=== PATIENT | male | born 1925 | race Caucasian/White ===

== ENCOUNTER 2016-06-09 14:18 | Emergency (ER) | payer MEDICARE, OTHER ==
[2016-06-09 15:23] VITALS: BP 97/70
--- NOTE | 2016-06-09 16:13 | UC ---
Shoulder Pain HPI - HPI Summary HPI Summary: The patient comes in today for: 1. Shoulder pain subsequent to fall. Onset: 4 hours ago. Palliative/provocative: Movement makes it worse and rest makes it better. Quality: Throbbing. Region: Right shoulder, right elbow, right hip and right hand. He is interested in getting the right hip and shoulder x-ray. HE wants also a right wrist x- ray. Severity: 2/10 at rest, but 5/10 with movement. Time: Constant. Associated symptoms: Event: He states that he fell while he was going over the curb. The daughter states that he has been having more unsteadiness of his gait over the last 2-3 months. Numbness/weakness: Denied He states that he did not hit his head or have LOC. He denies any new neck pain. He was living on his own at home before this fall. * - History of Current Complaint Chief Complaint: UCTrauma Stated Complaint: FELL-HAND,WRIST,SHOULDER,HIP Time Seen by Provider: 06/09/16 15:04 Hx Obtained From: Patient, Family/Jogger Operator - Allergies/Home Medications Allergies/Adverse Reactions: Allergies Allergy/AdvReac Type Severity Reaction Status Date / Time No Known Allergies Allergy Verified 06/09/16 15:09 PMH/Surg Hx/FS Hx/Imm Hx Previously Healthy: No Endocrine History Of: Denies: Diabetes, Thyroid Disease, Hyperthyroidism, Hypothyroidism, Dyslipidemia Cardiovascular History Of: Reports: Atrial Fibrillation Denies: Cardiac Disorders, Hypertension, Pacemaker/ICD, Myocardial Infarction , Congestive Heart Failure, Deep Vein Thrombosis, Bleeding Disorders Respiratory History Of: Denies: COPD, Asthma GI/ History Of: Denies: Gastroesophageal Reflux, Ulcer, Gastrointestinal Bleed, Gall Bladder Disease, Kidney Stones, Diverticulitis, Renal Disease, Urosepsis Neurological History Of: Denies: TIA, CVA, Dementia, Seizures, Migraine Psychological History Of: Denies: Anxiety, Depression, Bipolar Disorder, Schizophrenia, Post Traumatic Stress Disorder Cancer History Of: Denies: Lung Cancer, Colorectal Cancer, Breast Cancer, Prostate Cancer, Cervical Cancer Other History Of: Anticoagulant Therapy - coumadin Negative For: HIV, Hepatitis B, Hepatitis C - Surgical History Surgical History: Yes Surgery Procedure, Year, and Place: cataracts both eyes - Family History Known Family History: Positive: Cardiac Disease, Hypertension - Social History Occupation: Retired Alcohol Use: None Alcohol Amount: 2 GLASSES WINE/DAY Substance Use Type: None Smoking Status (MU): Never Smoked Tobacco Have You Smoked in the Last Year: No - Immunization History Most Recent Tetanus Shot: Pt states up to date Review of Systems Constitutional: Negative Skin: Negative Eyes: Negative ENT: Negative Respiratory: Negative, Cough - He has "a little bit of a cold." Cardiovascular: Negative Gastrointestinal: Negative All Other Systems Reviewed And Are Negative: Yes Physical Exam Triage Information Reviewed: Yes Appearance: Well-Appearing, No Pain Distress, Well-Nourished Vital Signs: Initial Vital Signs Temp 99.1 F 06/09/16 15:11 Pulse 83 06/09/16 15:11 Resp 20 06/09/16 15:11 BP 97/70 06/09/16 15:11 Pulse Ox 97 06/09/16 15:11 Vital Signs Reviewed: Yes Eyes: Positive: Conjunctiva Clear. Negative: Discharge ENT: Positive: Hearing grossly normal. Negative: Pharyngeal erythema, Nasal congestion, Nasal drainage, TM bulging, TM dull, TM red, Tonsillar swelling, Tonsillar exudate Dental: Negative: Gross Decay/Caries @, Dental Fracture @ Neck: Positive: Supple, Nontender, No Lymphadenopathy. Negative: Nuchal Rigidity Respiratory: Positive: Chest non-tender, Lungs clear, No respiratory distress, No accessory muscle use. Negative: Crackles, Wheezing Cardiovascular: Positive: RRR, No Murmur Abdomen Description: Positive: Nontender, No Organomegaly, Soft. Negative: Distended, Guarding Musculoskeletal: Positive: Edema @, Other: - The patient has swelling around the medial half of the right clavicle. There is tenderness. The right thumb has an abrasion. The lateral side of the right hip did not have any ecchymosis , and no obvious limb length discrepancy. He has good movement of the right hip in flexion and extension and some rotation, but there is slight pain with. He has ecchymosis and edema of the right hand. Neurological: Positive: Alert, Muscle Tone Normal Psychological: Positive: Age Appropriate Behavior, Consolable Skin: Negative: rashes, breakdown Diagnostics - Radiology No standard instances Xray Interpretation: Positive (See Comments) - He has no fractures of the right shoulder, clavicle and this hip. But, he has non-displaced fracture of the 3rd and 4th metacarpal. Shoulder Course/Dx - Course Course Of Treatment: After the fracture treatment of the right hand was discussed, an attempt was made to see how mobile the patient was, but he was barely able to stand and bear weight on his feet, but he needed much help. And he was only able to stand briefly for a few seconds before getting weak. He was alert in that he had his eye open looking around, but he was not responding to his daughter calling him and appeared confused. He was laid down and he started acting normally. A call was made with the [facility] regarding this patient and was told he would probably need a social admit and then transfer to sub acute rehab. The daughter was told of this. - Differential Dx/Diagnosis Provider Diagnoses: Fracture (non-displaced) of the right 3rd and 4th metacarpal. Generalized weakness. Contusion right clavicle. Abrasion of the right hand/thumb. Discharge - Discharge Plan Condition: Stable Disposition: TRANS HIGHER LVL OF CARE FAC Additional Instructions: Patient going via ambulance for social admit due to his inability to take care of himself.
[2016-06-09] MEDS ORDERED: HYDROcodone/ACETAMIN 5-325 MG* 1 TAB PO ONE (16:17)
--- NOTE | 2016-06-09 16:58 | RAD ---
HISTORY: Pain after fall COMPARISONS: November 01, 2009 VIEWS: 3, Frontal internal rotation, external rotation, and outlet views of the right shoulder FINDINGS: BONE DENSITY: There is diffuse osteopenia. BONES: There is a chronic appearing fracture of the right sixth rib. JOINTS: There is osteoarthritis of the a.c. and glenohumeral joints ALIGNMENT: There is no dislocation. SOFT TISSUES: Unremarkable. OTHER FINDINGS: None. IMPRESSION: 1. OSTEOPENIA. 2. CHRONIC APPEARING RIGHT SIXTH RIB FRACTURE. 3. OSTEOARTHRITIS. 4. NO ACUTE OSSEOUS INJURY. THE DEGREE OF OSTEOPENIA MAY MAKE A NONDISPLACED FRACTURE RADIOGRAPHICALLY OCCULT. IF SYMPTOMS PERSIST, RECOMMEND REPEAT IMAGING.
--- NOTE | 2016-06-09 17:08 | RAD ---
HISTORY: Pain after fall COMPARISONS: June 09, 2016 VIEWS: 2, frontal and frontal oblique views of the right clavicle FINDINGS: BONE DENSITY: Normal. BONES: There is no displaced fracture. JOINTS: There is osteoarthritis of the a.c. and glenohumeral joints. There is near complete effacement of the acromiohumeral interval ALIGNMENT: There is no dislocation. SOFT TISSUES: Unremarkable. OTHER FINDINGS: None. IMPRESSION: 1. OSTEOARTHRITIS. 2. NEAR COMPLETE EFFACEMENT OF THE ACROMIOHUMERAL INTERVAL SUGGESTIVE OF CHRONIC ROTATOR CUFF INJURY. 3. NO ACUTE OSSEOUS INJURY. IF SYMPTOMS PERSIST, RECOMMEND REPEAT IMAGING .
--- NOTE | 2016-06-09 17:09 | RAD ---
HISTORY: Pain after fall COMPARISONS: None VIEWS: 3, Frontal view of the pelvis with frontal and frog-leg views of the right hip FINDINGS: BONE DENSITY: Normal. BONES: There is no displaced fracture. JOINTS: There is mild to moderate osteoarthritis of the right hip ALIGNMENT: There is no dislocation. SOFT TISSUES: There is soft tissue swelling over the proximal right thigh. There is peripheral arterial calcification OTHER FINDINGS: Degenerative changes are noted of the spine IMPRESSION: 1. SOFT TISSUE SWELLING. 2. OSTEOARTHRITIS. 3. NO ACUTE OSSEOUS INJURY. IF SYMPTOMS PERSIST, RECOMMEND REPEAT IMAGING
--- NOTE | 2016-06-09 17:10 | RAD ---
HISTORY: Right wrist pain after fall COMPARISONS: None VIEWS: 3, Frontal, lateral, and oblique views of the right wrist FINDINGS: BONE DENSITY: There is diffuse osteopenia. BONES: There is a nondisplaced fracture of the fourth metacarpal with questionable nondisplaced fracture of the third metacarpal JOINTS: There is advanced osteoarthritis of the first CMC joint ALIGNMENT: There is no dislocation. SOFT TISSUES: There is peripheral arterial calcification OTHER FINDINGS: None. IMPRESSION: 1. FRACTURE OF THE FOURTH METACARPAL WITH QUESTIONABLE NONDISPLACED FRACTURE OF THE THIRD METACARPAL. 2. OSTEOARTHRITIS. 3. OSTEOPENIA. 4. PERIPHERAL ARTERIAL DISEASE
--- NOTE | 2016-06-09 17:12 | RAD ---
HISTORY: Right hand pain after fall COMPARISONS: None VIEWS: 4, Frontal, lateral, and oblique views of the right hand FINDINGS: BONE DENSITY: There is diffuse osteopenia. BONES: There is a nondisplaced fracture of the diaphysis of the fourth metacarpal. There is a nondisplaced fracture of the diaphysis of the third metacarpal. JOINTS: There is osteoarthrosis of the first CMC joint and of the interphalangeal joints ALIGNMENT: There is no dislocation. SOFT TISSUES: There is peripheral arterial calcification OTHER FINDINGS: None. IMPRESSION: 1. OSTEOPENIA. 2. NONDISPLACED FRACTURES OF THE THIRD AND FOURTH METACARPALS. 3. PERIPHERAL ARTERIAL DISEASE 4. OSTEOARTHRITIS
== END 2016-06-09 18:46 | disposition short-term general hospital (02) ==
LOC: UCEAST 14:18
DX: S62.302A Unspecified fracture of third metacarpal bone, right hand, initial encounter for closed fracture (principal); S62.304A Unspecified fracture of fourth metacarpal bone, right hand, initial encounter for closed fracture; S40.011A Contusion of right shoulder, initial encounter; S60.311A Abrasion of right thumb, initial encounter; W10.1XXA Fall (on)(from) sidewalk curb, initial encounter; Y93.9 Activity, unspecified; Y92.9 Unspecified place or not applicable; R53.1 Weakness; M19.041 Primary osteoarthritis, right hand; M85.841 Other specified disorders of bone density and structure, right hand; M16.7 Other unilateral secondary osteoarthritis of hip; M19.231 Secondary osteoarthritis, right wrist; M19.211 Secondary osteoarthritis, right shoulder; I73.9 Peripheral vascular disease, unspecified; I48.91 Unspecified atrial fibrillation; Z79.01 Long term (current) use of anticoagulants; Z98.42 Cataract extraction status, left eye; Z98.41 Cataract extraction status, right eye
CPT/HCPCS: 93005; 99213; G0463

== ENCOUNTER 2016-06-09 19:02 | Emergency (ER) | payer MEDICARE, OTHER ==
[2016-06-09] MEDS ORDERED: NS 0.9% 1000 ML* 1,000 ML IV ONE (19:54)
--- NOTE | 2016-06-09 20:26 | RAD ---
HISTORY: Confusion COMPARISONS: February 08, 2015 TECHNIQUE: Multiple contiguous axial CT scans were obtained of the head without intravenous contrast. FINDINGS: HEMORRHAGE/INFARCT: There is no hemorrhage or acute infarct. MASSES/SHIFT: There is no mass or shift. EXTRA-AXIAL SPACES: There are no extra-axial fluid collections. SULCI AND VENTRICLES: The sulci and ventricles are normal in size and position for the patient's stated age. CEREBRUM: There is hypoattenuation of the periventricular and subcortical white matter. BRAINSTEM: There are no focal parenchymal abnormalities. CEREBELLUM: There are no focal parenchymal abnormalities. VESSELS: The vessels are grossly normal. PARANASAL SINUSES: There are-fluid levels within the maxillary sinuses bilaterally and right frontal sinus. There is opacification of ethmoid air cells. ORBITS: The orbits are unremarkable. BONES AND SOFT TISSUE: No bone or soft tissue abnormalities are noted. OTHER: None IMPRESSION: 1. NO ACUTE INTRACRANIAL PATHOLOGY. 2. CHRONIC SMALL VESSEL ISCHEMIC CHANGES. 3. MODERATE SINUS MUCOSAL INFLAMMATORY DISEASE, WITH AIR-FLUID LEVELS IN THE MAXILLARY SINUSES BILATERALLY AND RIGHT FRONTAL SINUS. IN THE CORRECT CLINICAL SETTING, THIS MAY REPRESENT ACUTE SINUSITIS
--- NOTE | 2016-06-09 20:37 | RAD ---
HISTORY: Weakness COMPARISONS: July 15, 2015 VIEWS:1: Single frontal portable view of the chest at 8:04 PM FINDINGS: LINES AND TUBES: None. CARDIOMEDIASTINAL SILHOUETTE: The cardiomediastinal silhouette is normal for portable technique. PLEURA: The costophrenic angles are sharp. No pleural abnormalities are noted. LUNG PARENCHYMA: The lungs are clear. ABDOMEN: The upper abdomen is clear. There is no subphrenic gas. BONES AND SOFT TISSUES: There is a chronic appearing right sixth rib fracture IMPRESSION: NO ACTIVE CARDIOPULMONARY DISEASE.
[2016-06-09 20:41] LABS: Hematocrit 30 % (42-52); Hemoglobin 9.8 g/dl (14.0-18.0); Mean Corpuscular HGB Conc 33 g/dl (31-36); Mean Corpuscular Hemoglobin 31 pg (27-31); Mean Corpuscular Volume 94 fL (80-94); Mean Platelet Volume 10 um3 (7.4-10.4); Red Blood Count 3.16 10^6/ul (4.0-5.4); Red Cell Distribution Width 16 % (10.5-15); White Blood Count 17.2 10^3/ul (3.5-10.8)
[2016-06-09 21:03] LABS: Albumin 3.2 g/dL (3.2-5.2); BUN/Creatinine Ratio 22.8 (8-20); Calcium 8.7 mg/dL (8.6-10.3); EGFR African American 89.7 (>60); EGFR Non-African American 69.7 (>60); Globulin 2.7 g/dL (2-4); Potassium 3.8 mmol/L (3.5-5.0); Total Protein 5.9 g/dL (6.4-8.9)
[2016-06-09 21:06] LABS: Troponin I 0.01 ng/mL (<0.04)
[2016-06-09] MEDS ORDERED: Amoxicillin (*) 875 MG TAB PO ONE (23:00)
[2016-06-09 23:16] VITALS: BP 100/74
--- NOTE | 2016-06-10 01:49 | ED ---
Aubrey Perla Alok, scribed for Estefani Farrelluel on 06/09/16 at 2012 . Adult Trauma - HPI Summary HPI Summary: 89 y/o male presents to the ED for weakness following treatment from [facility] for a fall earlier today in the street. After receiving Wrist, Shoulder, Hip/Pelvis, Hand, and Clavicle Xray's at [facility], pt was reportedly was too weak to stand and was sent to the ED. Pt appears here today with splint on his right hand put on approximately two hours ago by [facility]. Pt complains that his right hand splint is too tight. Pt notes right shoulder pain while at rest and right hip pain when trying to move. Pt denies abd pain. Pt takes Coumadin. - History of Current Complaint Chief Complaint: EDGeneral Stated Complaint: GEN WEAKNESS Time Seen by Provider: 06/09/16 19:36 Hx Obtained From: Patient, Family/Insurance Operations Rep Mechanism of Injury: Fall Onset/Duration: Started Hours Ago, Traumatic, Still Present Current Severity: Moderate Location: Abdomen/Pelvis, Extremities Aggravating Factor(s): Movement Associated Signs & Symptoms: Positive: Numbness/Weakness. Negative: Abdominal Pain Related History: Anticoagulants - Allergy/Home Medications Allergies/Adverse Reactions: Allergies Allergy/AdvReac Type Severity Reaction Status Date / Time No Known Allergies Allergy Verified 06/09/16 15:09 PMH/Surg Hx/FS Hx/Imm Hx Endocrine/Hematology History: Reports: Hx Anticoagulant Therapy - coumadin Denies: Hx Diabetes, Hx Thyroid Disease Cardiovascular History: Reports: Hx Hypercholesterolemia, Hx Syncope Denies: Hx Congestive Heart Failure, Hx Deep Vein Thrombosis, Hx Hypertension , Hx Myocardial Infarction, Hx Pacemaker/ICD Respiratory History: Denies: Hx Asthma, Hx Chronic Obstructive Pulmonary Disease (COPD), Hx Lung Cancer GI History: Denies: Hx Gall Bladder Disease, Hx Gastrointestinal Bleed, Hx Ulcer, Hx Urosepsis History: Denies: Hx Kidney Stones, Hx Renal Disease Musculoskeletal History: Reports: Hx Arthritis - HANDS POSIBLT. NO PAIN Sensory History: Reports: Hx Cataracts - BILATERAL, Hx Contacts or Glasses Opthamlomology History: Reports: Hx Cataracts - BILATERAL, Hx Contacts or Glasses Neurological History: Denies: Hx Dementia, Hx Migraine, Hx Seizures, Hx Transient Ischemic Attacks (TIA) Psychiatric History: Denies: Hx Anxiety, Hx Depression, Hx Schizophrenia, Hx Bipolar Disorder - Surgical History Surgery Procedure, Year, and Place: cataracts both eyes Hx Anesthesia Reactions: No Infectious Disease History: Reports: Hx Shingles Denies: Hx Clostridium Difficile, Hx Hepatitis, Hx Human Immunodeficiency Virus (HIV), Hx of Known/Suspected MRSA, Hx Tuberculosis, Hx Known/Suspected VRE , Hx Known/Suspected VRSA, History Other Infectious Disease, Traveled Outside the [place] in Last 30 Days - Family History Known Family History: Positive: Cardiac Disease, Hypertension - Social History Occupation: Retired Lives: Alone Alcohol Use: None Alcohol Amount: 2 GLASSES WINE/DAY Substance Use Type: Reports: None Smoking Status (MU): Never Smoked Tobacco Have You Smoked in the Last Year: No Review of Systems Positive: Other - Right clavicle and right hip pain Positive: Weakness All Other Systems Reviewed And Are Negative: Yes Physical Exam Triage Information Reviewed: Yes Vital Signs On Initial Exam: Initial Vital Signs Temp 98.2 F 06/09/16 20:54 Pulse 89 06/09/16 20:54 Resp 21 06/09/16 20:54 BP 102/82 06/09/16 20:54 Pulse Ox 98 06/09/16 20:54 Vital Signs Reviewed: Yes Appearance: Positive: Well-Appearing, No Pain Distress Skin: Positive: Warm, Skin Color Reflects Adequate Perfusion, Dry Head/Face: Positive: Normal Head/Face Inspection Eyes: Positive: EOMI, SUZY ENT: Positive: Normal ENT inspection Neck: Positive: Supple, Nontender Respiratory/Lung Sounds: Positive: Clear to Auscultation, Breath Sounds Present , Other - mild swelling over the rt clavicle Cardiovascular: Positive: RRR, Pulses are Symmetrical in both Upper and Lower Extremities Abdomen Description: Positive: Nontender, Soft Bowel Sounds: Positive: Present Musculoskeletal: Positive: Other - Right hand splint Neurological: Positive: Normal, Sensory/Motor Intact, Alert, Oriented to Person Place, Time Diagnostics - Vital Signs Vital Signs Temp Pulse Resp BP Pulse Ox 06/09/16 23:16 97.4 F 06/09/16 22:48 123 97 06/09/16 22:46 100/74 06/09/16 21:50 100 20 97 06/09/16 21:30 94 22 103/69 97 06/09/16 21:11 87 18 96 06/09/16 21:10 102/82 06/09/16 20:54 98.2 F 89 21 102/82 98 - Laboratory Lab Results: Lab Results 06/09/16 06/09/16 06/09/16 Range/Units 20:30 20:30 20:30 WBC 17.2 H (3.5-10.8) 10^3/ul RBC 3.16 L (4.0-5.4) 10^6/ul Hgb 9.8 L (14.0-18.0) g/dl Hct 30 L (42-52) % MCV 94 (80-94) fL MCH 31 (27-31) pg MCHC 33 (31-36) g/dl RDW 16 H (10.5-15) % Plt Count 207 (150-450) 10^3/ul MPV 10 (7.4-10.4) um3 Neut % (Auto) 85.5 H (38-83) % Lymph % (Auto) 7.7 L (25-47) % [place] % (Auto) 5.7 (1-9) % Eos % (Auto) 0.3 (0-6) % Baso % (Auto) 0.8 (0-2) % Absolute Neuts (auto) 14.7 H (1.5-7.7) 10^3/ul Absolute Lymphs (auto) 1.3 (1.0-4.8) 10^3/ul Absolute Monos (auto) 1.0 H (0-0.8) 10^3/ul Absolute Eos (auto) 0.1 (0-0.6) 10^3/ul Absolute Basos (auto) 0.1 (0-0.2) 10^3/ul Absolute Nucleated RBC 0 10^3/ul Nucleated RBC % 0 Sodium 133 (133-145) mmol/L Potassium 3.8 (3.5-5.0) mmol/L Chloride 102 (101-111) mmol/L Carbon Dioxide 24 (22-32) mmol/L Anion Gap 7 (2-11) mmol/L BUN 23 (6-24) mg/dL Creatinine 1.01 (0.67-1.17) mg/dL Est GFR ( Amer) 89.7 (>60) Est GFR (Non-Af Amer) 69.7 (>60) BUN/Creatinine Ratio 22.8 H (8-20) Glucose 153 H (70-100) mg/dL Calcium 8.7 (8.6-10.3) mg/dL Total Bilirubin 1.00 (0.2-1.0) mg/dL AST 28 (13-39) U/L ALT 19 (7-52) U/L Alkaline Phosphatase 64 (34-104) U/L Total Creatine Kinase 106 (10-223) U/L Troponin I 0.01 (<0.04) ng/mL B-Natriuretic Peptide 218 H ( - 100) pg/mL Total Protein 5.9 L (6.4-8.9) g/dL Albumin 3.2 (3.2-5.2) g/dL Globulin 2.7 (2-4) g/dL Albumin/Globulin Ratio 1.2 (1-3) Result Diagrams: 06/09/16 20:30 06/09/16 20:30 Lab Statement: Any lab studies that have been ordered have been reviewed, and results considered in the medical decision making process. - Radiology CXR Xray Interpretation: Positive (See Comments) - IMPRESSION: NO ACTIVE CARDIOPULMONARY DISEASE. Radiology Interpretation Completed By: Radiologist - CT Brain CT CT Interpretation: Positive (See Comments) - IMPRESSION: 1. NO ACUTE INTRACRANIAL PATHOLOGY. 2. CHRONIC SMALL VESSEL ISCHEMIC CHANGES. 3. MODERATE SINUS MUCOSAL INFLAMMATORY DISEASE, WITH AIR-FLUID LEVELS IN THE MAXILLARY SINUSES BILATERALLY AND RIGHT FRONTAL SINUS. IN THE CORRECT CLINICAL SETTING, THIS MAY REPRESENT ACUTE SINUSITIS CT Interpretation Completed By: Radiologist Adult Trauma Course/Dx - Course Assessment/Plan: Pt is now ambulating. Right hand salma bandage was removed and reapplied more loosely. Pt feels more comfortable after right hand splint adjustment. No focal/neurological deficit of the right hand. Family agrees to take pt home. - Diagnoses Provider Diagnoses: Sinusitis, Dizziness, Anemia, Right hand fracture Discharge - Discharge Plan Condition: Stable Disposition: HOME Prescriptions: Amoxicillin (*) [Amoxicillin 875 MG (*)] 875 mg PO BID #20 tab Patient Education Materials: Sinusitis (ED), Dizziness (ED), Anemia (ED), Hand Fracture (ED) Referrals: Houston Sheikh MD [Primary Care Provider] - 3 Days Additional Instructions: Please follow up with your primary care provider in the next 3 days. The documentation as recorded by the Aubrey dawson Alok accurately reflects the service I personally performed and the decisions made by me, Odilon Farrell.
== END 2016-06-09 23:16 | disposition home or self-care (01) ==
LOC: ED 19:02
DX: S62.91XA Unspecified fracture of right hand, initial encounter for closed fracture (principal); R53.1 Weakness; M25.551 Pain in right hip; J32.9 Chronic sinusitis, unspecified; R42 Dizziness and giddiness; D64.9 Anemia, unspecified; W19.XXXA Unspecified fall, initial encounter; Y93.9 Activity, unspecified; Y92.9 Unspecified place or not applicable
CPT/HCPCS: 36415; 70450; 71010; 80053; 82550; 83880; 84484; 85025; 96360; 99282

== ENCOUNTER 2016-06-22 14:33 | Inpatient (IN) | payer MEDICARE, OTHER ==
[2016-06-22] MEDS ORDERED: NS 0.9% 1000 ML* 2,000 ML IV ONE (15:15)
--- NOTE | 2016-06-22 15:36 | RAD ---
INDICATION: Syncope. Pneumonia COMPARISON: June 09, 2016 TECHNIQUE: An AP portable view obtained at 1521 hours is submitted. FINDINGS: Bones/Soft Tissues: There are no acute bony findings. Cardiomediastinal: The heart is at the upper limits of normal in size but appears smaller relative to the earlier study. Lungs: There are no infiltrates. Pleura: There are no pleural effusions. Other: None IMPRESSION: NO ACTIVE DISEASE.
[2016-06-22 15:48] LABS: Add Diff/Slide Review? Slide Review Added; Comments Flag Yes; Hematocrit 28 % (42-52); Hemoglobin 9.3 g/dl (14.0-18.0); Mean Corpuscular HGB Conc 34 g/dl (31-36); Mean Corpuscular Hemoglobin 33 pg (27-31); Mean Corpuscular Volume 98 fL (80-94); Mean Platelet Volume 8 um3 (7.4-10.4); Red Cell Distribution Width 22 % (10.5-15)
[2016-06-22 16:06] LABS: Troponin I 0.01 ng/mL (<0.04)
[2016-06-22 16:07] LABS: Albumin 3.7 g/dL (3.2-5.2); BUN/Creatinine Ratio 23.8 (8-20); Calcium 8.9 mg/dL (8.6-10.3); EGFR African American 110.9 (>60); EGFR Non-African American 86.2 (>60); Globulin 2.8 g/dL (2-4); Total Bilirubin 2.1 mg/dL (0.2-1.0); Total Protein 6.5 g/dL (6.4-8.9)
--- NOTE | 2016-06-22 16:08 | RAD ---
Indication: Fall. Hematoma at the RIGHT hip. Assess for fracture. Comparison: June 09, 2016 radiographs. Technique: Multidetector CT pelvis without contrast. Multiplanar reformation with bone algorithm. Report: Large volume of infiltrative hematoma within the RIGHT gluteal musculature and caudal extension into the RIGHT posterior thigh along the course of the hamstring muscle group. At the posterior thigh the hematoma appears more loculated measuring up to 6.5 cm AP by 4.5 cm transverse and extending distal to the caudal margin of the [id number] 7 cm below the ischial tuberosity. Both hips are normally located. No proximal femur or pelvic fracture or pelvic joint diastases evident. Both hips are remarkable for mild osteoarthritis. Associated 1.3 cm degenerative cyst at the anterior aspect of the RIGHT femoral head neck junction. No significant hip joint effusions evident. Negative for free pelvic fluid or suspicious finding of the visualized pelvic viscera. Atherosclerotic calcification of normal diameter aortic bifurcation and iliac arteries. IMPRESSION: 1. No CT evidence for RIGHT hip or pelvic fracture. 2. Large volume of infiltrative hematoma within the RIGHT gluteal musculature and caudal extension into the RIGHT posterior thigh along the course of the hamstring muscle group. At the posterior thigh the hematoma appears more loculated measuring up to 6.5 cm AP by 4.5 cm transverse and extending distal to the caudal margin of the [id number] 7 cm below the ischial tuberosity.
[2016-06-22 16:30] LABS: TSH (Thyroid Stimulating Horm) 4.82 mcIU/mL (0.34-5.60)
[2016-06-22] MEDS ORDERED: Ondansetron INJ* 2 MG/ML VIAL IV PRN (17:01)
[2016-06-22] MEDS ORDERED: Acetaminophen TAB* 325 MG PO PRN (17:01)
[2016-06-22] MEDS ORDERED: Phytonadione Oral Solution* 5 MG/25 ML UDC PO ONE (17:04)
--- NOTE | 2016-06-22 17:35 | ED ---
Ld Perla Benjamin, scribed for Benigno Leija MD on 06/22/16 at 1516 . Syncope/Near Syncope - HPI Summary HPI Summary: 89yo male who presents to ED after having a syncopal episode at Dr. Braswell office. Pt fell on 06/09/16, where pt bruised his right hip and fractured right wrist. Per daughters, his bruising has gotten larger and he became increasingly weak. Today, pt called his daughter saying that he cannot get up, which was the reason why he went to Dr. Braswell office. There, pt passed out and came to ED subsequently. Pt has hx of afib, and is on coumadin. - History Of Current Complaint Chief Complaint: EDSyncope Time Seen by Provider: 06/22/16 14:50 Hx Obtained From: Family/Product Marketing Engineer - daughters Onset/Duration: Gradual Onset, Lasting Days, Still Present, Worse Since Timing: Constant Context: Witnessed, Loss Of Consciousness Activity At Onset: At Rest Associated Head Trauma: No Aggravating Factor(s): Nothing Alleviating Factor(s): Nothing Associated Signs And Symptoms: Negative - Allergies/Home Medications Allergies/Adverse Reactions: Allergies Allergy/AdvReac Type Severity Reaction Status Date / Time No Known Allergies Allergy Verified 06/09/16 15:09 Home Medications: Home Medications Multiple Vitamins W/ Minerals [Eye Vitamins & Minerals] 1 tab PO DAILY 06/22/16 [History Confirmed 06/22/16] Tamsulosin CAP* [Flomax CAP*] 0.4 mg PO QPM 06/22/16 [History Confirmed 06/22/16 ] Warfarin TAB(*) [Coumadin TAB(*)] 7.5 mg PO TH 06/22/16 [History Confirmed 06/22] PMH/Surg Hx/FS Hx/Imm Hx Endocrine/Hematology History: Reports: Hx Anticoagulant Therapy - coumadin Denies: Hx Diabetes, Hx Thyroid Disease Cardiovascular History: Reports: Hx Hypercholesterolemia, Hx Syncope Denies: Hx Congestive Heart Failure, Hx Deep Vein Thrombosis, Hx Hypertension , Hx Myocardial Infarction, Hx Pacemaker/ICD Respiratory History: Denies: Hx Asthma, Hx Chronic Obstructive Pulmonary Disease (COPD), Hx Lung Cancer GI History: Denies: Hx Gall Bladder Disease, Hx Gastrointestinal Bleed, Hx Ulcer, Hx Urosepsis History: Denies: Hx Kidney Stones, Hx Renal Disease Musculoskeletal History: Reports: Hx Arthritis - HANDS POSIBLT. NO PAIN Sensory History: Reports: Hx Cataracts - BILATERAL, Hx Contacts or Glasses Opthamlomology History: Reports: Hx Cataracts - BILATERAL, Hx Contacts or Glasses Neurological History: Denies: Hx Dementia, Hx Migraine, Hx Seizures, Hx Transient Ischemic Attacks (TIA) Psychiatric History: Denies: Hx Anxiety, Hx Depression, Hx Schizophrenia, Hx Bipolar Disorder - Surgical History Surgery Procedure, Year, and Place: cataracts both eyes Hx Anesthesia Reactions: No Infectious Disease History: Reports: Hx Shingles Denies: Hx Clostridium Difficile, Hx Hepatitis, Hx Human Immunodeficiency Virus (HIV), Hx of Known/Suspected MRSA, Hx Tuberculosis, Hx Known/Suspected VRE , Hx Known/Suspected VRSA, History Other Infectious Disease, Traveled Outside the [place] in Last 30 Days - Family History Known Family History: Positive: Cardiac Disease, Hypertension - Social History Occupation: Retired Lives: Alone Alcohol Use: None Alcohol Amount: 2 GLASSES WINE/DAY Substance Use Type: Reports: None Smoking Status (MU): Never Smoked Tobacco Have You Smoked in the Last Year: No Review of Systems Constitutional: Negative Eyes: Negative ENT: Negative Cardiovascular: Negative Respiratory: Negative Gastrointestinal: Negative Genitourinary: Negative Positive: Other - cast on Right wrist Positive: Bruising - right shoulder, right hip Positive: Syncope Psychological: Normal All Other Systems Reviewed And Are Negative: Yes Physical Exam - Summary Physical Exam Summary: The patient is well-nourished in no acute distress and in no acute pain. The skin is warm and dry and skin color is pale. Ecchymosis on right shoulder, extending to the chest, also on pt's right leg. Large hematoma on right hip. HEENT: The head is normocephalic and atraumatic. The pupils are equal and reactive. There is jaundice in conjunctiva and pale sclera without drainage. Nares are patent and without drainage. Mouth reveals dry mucous membranes and the throat is without erythema and exudate. The external ears are intact. The ear canals are patent and without drainage. The tympanic membranes are intact. Neck is supple with full range of motion and non-tender. There are no carotid bruits. There is no neck vein distension. Respiratory: Chest is non-tender. Lungs are clear to auscultation and breath sounds are symmetrical and equal. Cardiovascular: Hear is irregular rate and rhythm but controlled. There is no murmur or rub auscultated. There is no peripheral edema and pulses are symmetrical and equal. Abdomen: The abdomen is soft and non-tender. There are normal bowel sounds heard in all four quadrants and there is no organomegaly palpated. Musculoskeletal: There is no back pain noted. Extremities are non-tender with full range of motion. There is good capillary refill. There is no peripheral edema or calf tenderness elicited. Neurological: Patient is alert and oriented to person, place and time. The patient has symmetrical motor strength in all four extremities. Cranial nerves are grossly intact. Deep tendon reflexes are symmetrical and equal in all four extremities. Psychiatric: The patient has an appropriate affect and does not exhibit any anxiety or depression. Triage Information Reviewed: Yes Vital Signs On Initial Exam: Initial Vitals Temp Pulse Resp BP Pulse Ox 98.1 F 79 18 98/62 99 06/22/16 14:52 06/22/16 14:52 06/22/16 14:52 06/22/16 14:52 06/22/16 14:52 Vital Signs Reviewed: Yes - Weare Coma Scale Coma Scale Total: 15 Diagnostics - Vital Signs Vital Signs Temp Pulse Resp BP Pulse Ox 06/22/16 14:52 98.1 F 79 18 98/62 99 - Laboratory Lab Results: Lab Results 06/22/16 06/22/16 06/22/16 Range/Units 15:38 15:38 15:38 WBC 12.0 H (3.5-10.8) 10^3/ul RBC 2.80 L (4.0-5.4) 10^6/ul Hgb 9.3 L (14.0-18.0) g/dl Hct 28 L (42-52) % MCV 98 H (80-94) fL MCH 33 H (27-31) pg MCHC 34 (31-36) g/dl RDW 22 H (10.5-15) % Plt Count 251 (150-450) 10^3/ul MPV 8 (7.4-10.4) um3 Neut % (Auto) 89.9 H (38-83) % Lymph % (Auto) 4.0 L (25-47) % Lamb % (Auto) 5.3 (1-9) % Eos % (Auto) 0.2 (0-6) % Baso % (Auto) 0.6 (0-2) % Absolute Neuts (auto) 10.8 H (1.5-7.7) 10^3/ul Absolute Lymphs (auto) 0.5 L (1.0-4.8) 10^3/ul Absolute Monos (auto) 0.6 (0-0.8) 10^3/ul Absolute Eos (auto) 0 (0-0.6) 10^3/ul Absolute Basos (auto) 0.1 (0-0.2) 10^3/ul Absolute Nucleated RBC 0.01 10^3/ul Nucleated RBC % 0.1 INR (Anticoag Therapy) (0.89-1.11) Sodium 123 L (133-145) mmol/L Potassium 4.0 (3.5-5.0) mmol/L Chloride 93 L (101-111) mmol/L Carbon Dioxide 24 (22-32) mmol/L Anion Gap 6 (2-11) mmol/L BUN 20 (6-24) mg/dL Creatinine 0.84 (0.67-1.17) mg/dL Est GFR ( Amer) 110.9 (>60) Est GFR (Non-Af Amer) 86.2 (>60) BUN/Creatinine Ratio 23.8 H (8-20) Glucose 144 H (70-100) mg/dL Lactic Acid (0.5-2.0) mmol/L Calcium 8.9 (8.6-10.3) mg/dL Magnesium 2.0 (1.9-2.7) mg/dL Total Bilirubin 2.10 H (0.2-1.0) mg/dL AST 31 (13-39) U/L ALT 18 (7-52) U/L Alkaline Phosphatase 73 (34-104) U/L Total Creatine Kinase 111 (10-223) U/L Troponin I 0.01 (<0.04) ng/mL B-Natriuretic Peptide ( - 100) pg/mL Total Protein 6.5 (6.4-8.9) g/dL Albumin 3.7 (3.2-5.2) g/dL Globulin 2.8 (2-4) g/dL Albumin/Globulin Ratio 1.3 (1-3) TSH 4.82 (0.34-5.60) mcIU/mL Blood Type A Positive Antibody Screen Negative 06/22/16 06/22/16 06/22/16 Range/Units 15:38 15:38 15:38 WBC (3.5-10.8) 10^3/ul RBC (4.0-5.4) 10^6/ul Hgb (14.0-18.0) g/dl Hct (42-52) % MCV (80-94) fL MCH (27-31) pg MCHC (31-36) g/dl RDW (10.5-15) % Plt Count (150-450) 10^3/ul MPV (7.4-10.4) um3 Neut % (Auto) (38-83) % Lymph % (Auto) (25-47) % Lamb % (Auto) (1-9) % Eos % (Auto) (0-6) % Baso % (Auto) (0-2) % Absolute Neuts (auto) (1.5-7.7) 10^3/ul Absolute Lymphs (auto) (1.0-4.8) 10^3/ul Absolute Monos (auto) (0-0.8) 10^3/ul Absolute Eos (auto) (0-0.6) 10^3/ul Absolute Basos (auto) (0-0.2) 10^3/ul Absolute Nucleated RBC 10^3/ul Nucleated RBC % INR (Anticoag Therapy) 1.80 H (0.89-1.11) Sodium (133-145) mmol/L Potassium (3.5-5.0) mmol/L Chloride (101-111) mmol/L Carbon Dioxide (22-32) mmol/L Anion Gap (2-11) mmol/L BUN (6-24) mg/dL Creatinine (0.67-1.17) mg/dL Est GFR ( Amer) (>60) Est GFR (Non-Af Amer) (>60) BUN/Creatinine Ratio (8-20) Glucose (70-100) mg/dL Lactic Acid 1.6 (0.5-2.0) mmol/L Calcium (8.6-10.3) mg/dL Magnesium (1.9-2.7) mg/dL Total Bilirubin (0.2-1.0) mg/dL AST (13-39) U/L ALT (7-52) U/L Alkaline Phosphatase (34-104) U/L Total Creatine Kinase (10-223) U/L Troponin I (<0.04) ng/mL B-Natriuretic Peptide 216 H ( - 100) pg/mL Total Protein (6.4-8.9) g/dL Albumin (3.2-5.2) g/dL Globulin (2-4) g/dL Albumin/Globulin Ratio (1-3) TSH (0.34-5.60) mcIU/mL Blood Type Antibody Screen Result Diagrams: 06/22/16 15:38 06/22/16 15:38 Lab Statement: Any lab studies that have been ordered have been reviewed, and results considered in the medical decision making process. - Radiology CXR Xray Interpretation: No Acute Changes Radiology Interpretation Completed By: Radiologist - CT Pelvic CT CT Interpretation: Positive (See Comments) - IMPRESSION: 1. No CT evidence for RIGHT hip or pelvic fracture. 2. Large volume of infiltrative hematoma within the RIGHT gluteal musculature and caudal extension into the RIGHT posterior thigh along the course of the hamstring muscle group. At the posterior thigh the hematoma appears more loculated measuring up to 6.5 cm AP by 4.5 cm transverse and extending distal to the caudal margin of the [id number] 7 cm below the ischial tuberosity. CT Interpretation Completed By: Radiologist - EKG 1506. Cardiac Rate: NL - 80bpm EKG Rhythm: Atrial Fibrillation - controlled rate ST Segment: Non-Specific EKG Interpretation: NO STEMI Course/Dx - Diagnoses Differential Diagnosis/HQI/PQRI: Positive: Hypovolemia, Metabolic Reaction, Other - fracture, hematoma, anticoagulation therapy Provider Diagnoses: Syncope, Hip hematoma, right - Physician Notifications Discussed Care Of Patient With: Dr. Mcghee (hospitalist) @0811. Discharge - Discharge Plan Condition: Stable Disposition: ADMITTED TO [facility] documentation as recorded by the Ld dawson Benjamin accurately reflects the service I personally performed and the decisions made by , Benigno Leija MD.
[2016-06-22] MEDS: HYDROcodone/ACETAMIN 5-325 MG* 1 TAB PO PRN ×2 (19:05→23:45)
[2016-06-22] MEDS: NS 0.9% 1000 ML* 1,000 ML IV SCH (19:14)
[2016-06-22 20:29] LABS: Hematocrit 27 % (42-52); Hemoglobin 8.7 g/dl (14.0-18.0)
[2016-06-22 21:12] LABS: Comments Flag Yes
--- NOTE | 2016-06-22 21:50 | HP ---
ADMISSION HISTORY AND PHYSICAL: DATE OF ADMISSION: 06/22/16 PRIMARY CARE PROVIDER: Dr. Sheikh. ADMITTING PROVIDER: DENISE Chahal. SUPERVISING PHYSICIAN: Rikki Santoro MD.* (DICTATED BY DENISE CHAHAL) CHIEF COMPLAINT: Syncope. HISTORY OF PRESENT ILLNESS: This is an 89-year-old gentleman with atrial fibrillation and BPH who was referred from his primary care provider's office via ambulance after a syncopal event. The patient was seen in the emergency department approximately 2 weeks ago after sustaining a fall. He was walking across the street and tripped over the curb and fell on to his right side. This resulted in a hand fracture for which he is currently casted, but no additional fractures noted. At the time of fall, he had no significant ecchymosis over his hip, but did have a small bump. Over the last week, he has had an expanding area of ecchymosis with edema and tenderness. His ability to ambulate has been declining since the time of fall. He has been feeling progressively weaker. His daughter who lives next door has been preparing his meals and his son-in- law has been spending the night with him since the time of fall. This morning he called his daughter as he did not feel that he was able to get up on his own and required assistance to get to the rest room. He did fall at that time, but did not lose consciousness, this fall was more secondary to weakness. He was then transported to his primary care provider's office for additional evaluation and when he was asked to stand from the wheelchair, he immediately lost consciousness and subsequently vomited, at which point an ambulance was called. At the time of his fall 2 weeks ago, he was felt to have sinusitis that may or may not have contributed to some dizziness and subsequent fall and he was treated with amoxicillin. He has had no other acute illness. Denies nausea, vomiting or diarrhea associated with the antibiotic. He reports that he has been eating and drinking normally and his appetite is fine. PAST MEDICAL HISTORY: 1. Atrial fibrillation, chronically anticoagulated on Coumadin. 2. BPH with retention symptoms. PAST SURGICAL HISTORY: None. HOME MEDICATIONS: 1. Atenolol 25 mg p.o. daily. 2. Multivitamin 1 tablet p.o. daily. 3. Flomax 0.4 mg p.o. nightly. 4. Coumadin 5 mg on Wednesday, Wednesday, Wednesday, Wednesday, Wednesday, Wednesday and 7.5 mg on . SOCIAL HISTORY: The patient lives alone, but next door to his daughter. Denies any smoking history or regular alcohol consumption. He is a retired professor at [employer]. REVIEW OF SYSTEMS: As noted above in HPI, all other systems were reviewed and otherwise negative. PHYSICAL EXAM: GENERAL: This is a very pleasant elderly gentleman who appears fatigued, but is in no acute distress and accompanied by his 2 daughters, who are quite vigilant regarding his care. INITIAL VITALS: Temperature 98.1 degrees Fahrenheit, pulse 79 beats per minute , respiratory rate 18 per minute, oxygen saturation 99% on room air, and blood pressure 98/62 mmHg. HEENT: Head is normocephalic and atraumatic. Mucous membranes are mildly dry. RESPIRATORY: Lungs are clear to auscultation without wheezes, crackles, or rhonchi. CARDIOVASCULAR: Heart has an irregularly regular rhythm but without murmurs, rubs, or gallops. No JVD appreciated. ABDOMEN: Abdomen is soft and nontender to palpation. EXTREMITIES: The patient has trace edema bilaterally. SKIN: The patient has diffuse ecchymosis mostly concentrated around his right hip and extending down his entire posterior leg encompassing both his hamstring and gastroc region with surrounding edema and it is quite firm and somewhat tender to palpation. He also has an area of ecchymosis around his right shoulder. MUSCULOSKELETAL: The patient has a cast over his right hand and wrist. He is able to move his right shoulder, but with some discomfort. Mobility of his right lower extremity was not specifically assessed. PSYCHIATRIC: The patient is alert and appropriately oriented. DIAGNOSTIC STUDIES/LAB DATA: CBC shows a white blood cell count of 12,000, hemoglobin of 9.3 g/dL, and platelet count of 251,000. INR 1.8. Comprehensive metabolic panel shows sodium of 123 mmol/L, potassium 4.0, BUN of 20, creatinine 0.84. Random glucose of 144 mg/dL. Lactic acid of 1.6. Transaminases within normal limits with total bilirubin elevated at 2.1. Troponin negative at 0.01. BNP slightly elevated at 216. TSH is normal at 4.82. IMAGING: CT of the pelvis shows no evidence of fracture, but there is a very large hematoma encompassing most of the right gluteal musculature and extending distally down his posterior thigh along the hamstrings musculature. ASSESSMENT AND PLAN: This is an 89-year-old gentleman with atrial fibrillation , who presented after a syncopal episode 2 weeks after sustaining a mechanical fall with a very large hematoma encompassing the majority of his right leg. 1. Syncope - this is likely secondary to orthostasis and anemia. We will plan to rehydrate the patient and evaluate serial hemoglobins. I anticipate that the patient may require blood transfusion as he does appear dry at this moment and is likely hemoconcentrated with a hemoglobin of 9.3 and once fully rehydrated, we may see hemoglobin as low as 7 g/dL. The patient will be placed on telemetry; however, to evaluate for dysrhythmia, but this seems to be a less likely cause for his syncope. 2. Hyponatremia - this is likely due to hypovolemia and we will plan to repeat some chemistry panel tomorrow after rehydrating. 3. Elevated total bilirubin - this is likely due to excessive degradation of red blood cells and his large area of hematoma and I expect this to improve with hydration. We will plan to repeat a comprehensive metabolic panel tomorrow. 4. Anemia - the patient's hemoglobin appears to be relatively stable when compared to labs from 2 weeks ago on June 09, but as stated above, anticipate that once he is rehydrated, we will see a hemoglobin that is much lower as he does appear to be relatively hemoconcentrated. Unsure of how quickly he is bleeding into the area of hematoma. I am planning to give 2.5 mg dose of oral vitamin K and trend his hemoglobin and repeat an INR tomorrow morning. He may require a transfusion, but will rehydrate him first. 5. Atrial fibrillation - Coumadin will be held at this time. Also plan to continue atenolol. Coumadin will need to be held indefinitely due to the signs of his hematoma, this will likely require months to resorb. Due to his age and significance of this fall, the patient may not be an appropriate candidate to resume anticoagulation. 6. Deconditioning - assume that the majority of his weakness is due to his anemia and orthostasis, but he does have a very large area of hematoma and subsequently has significant weakness and reduced range of motion. We will request evaluation from physical therapy and occupational therapy as he may require subacute rehab stay rather than returning home from this hospitalization. 7. Benign prostatic hypertrophy - the patient has been prescribed Flomax actually just recently by his primary care provider and that will be held at this time as it will contribute to his orthostasis and monitor signs of acute urinary retention. 8. Code status. The patient is Do Not Resuscitate. 9. Healthcare proxy is the patient's daughter, Wilfredo Jung, who lives next door. 10. DVT prophylaxis - chemical prophylaxis is contraindicated in the setting of acute bleeding. We will order SCD's for prophylaxis. DISPOSITION: The patient is being admitted to inpatient status with anticipation for length of stay of greater than 2 midnights. DENISE CHAHAL CC: Dr. Sheikh * [id number]/CPS #: [id number]
[2016-06-23 03:09] LABS: Hematocrit 23 % (42-52); Hemoglobin 7.6 g/dl (14.0-18.0)
[2016-06-23 03:14] LABS: Comments Flag Yes
[2016-06-23] MEDS: NS 0.9% 1000 ML* 1,000 ML IV SCH ×3 (03:25→22:59)
[2016-06-23 06:13] LABS: Hematocrit 23 % (42-52); Hemoglobin 7.8 g/dl (14.0-18.0); Mean Corpuscular HGB Conc 34 g/dl (31-36); Mean Corpuscular Hemoglobin 34 pg (27-31); Mean Corpuscular Volume 100 fL (80-94); Mean Platelet Volume 8 um3 (7.4-10.4); Red Blood Count 2.33 10^6/ul (4.0-5.4); White Blood Count 10.7 10^3/ul (3.5-10.8)
[2016-06-23 06:16] LABS: Comments Flag Yes
[2016-06-23 06:17] LABS: Red Cell Distribution Width 23 % (10.5-15)
[2016-06-23 06:30] LABS: Albumin 3.1 g/dL (3.2-5.2); BUN/Creatinine Ratio 23.4 (8-20); Calcium 8.1 mg/dL (8.6-10.3); EGFR African American 151.8 (>60); Globulin 2.5 g/dL (2-4); Potassium 4.3 mmol/L (3.5-5.0); Total Bilirubin 1.8 mg/dL (0.2-1.0); Total Protein 5.6 g/dL (6.4-8.9)
--- NOTE | 2016-06-23 08:08 | PN ---
Subjective Date of Service: 06/23/16 Interval History: This is an 89 yo male admitted after a syncopal episode yesterday with evidence of a large hematoma over his right posterior leg after sustaining a fall ~ 2 weeks ago while on Coumadin, no associated fx. Patient reports that he still feels quite weak this am, but he was not dizzy with standing, just felt slightly unsteady on his feet. Pain in his hip is managed at rest, painful with ambulation. Denies difficulty breathing or CP. No abd pain, n/v. Objective Active Medications: Acetaminophen (Tylenol Tab*) 650 mg PO Q4H PRN PRN Reason: FEVER/PAIN Hydrocodone Bitart/Acetaminophen (Lafitte 5-325 Tab*) 1 tab PO Q4H PRN PRN Reason: PAIN Last Admin: 06/22/16 23:45 Dose: 1 tab Atenolol (Tenormin Tab*) 25 mg PO DAILY [facility] Sodium Chloride (Ns 0.9% 1000 Ml*) 1,000 mls @ 125 mls/hr IV PER RATE [facility] Last Admin: 06/23/16 03:25 Dose: 125 mls/hr Ondansetron HCl (Zofran Inj*) 4 mg IV Q4H PRN PRN Reason: NAUSEA/VOMITING Vital Signs: Temp Pulse Resp BP Pulse Ox 97.9 F 127 16 99/58 100 06/23/16 07:25 06/23/16 07:25 06/23/16 07:25 06/23/16 07:25 06/23/16 07:25 Appearance: Well appearing elderly gentleman in [facility]. Appears slightly more energetic than he did yesterday. Respiratory: Symmetrical Chest Expansion and Respiratory Effort, Clear to Auscultation Cardiovascular: NL Sounds; No Murmurs; No JVD, - - irregular rhythm Abdominal: NL Sounds; No Tenderness; No Distention Extremities: - - no distal edema, large hematoma with associated edema along posterior R leg Skin: - - significant ecchymosis along posterior leg Neurological: Alert and Oriented x 3 Result Diagrams: 06/23/16 05:59 06/23/16 05:59 Additional Lab and Data: Vital Signs: Temp Pulse Resp BP Pulse Ox 97.9 F 127 16 99/58 100 06/23/16 07:25 06/23/16 07:25 06/23/16 07:25 06/23/16 07:25 06/23/16 07:25 Diagnostic Imaging: CT pelvis - no fracture, large hematoma along gluteal musculature and posterior thigh Assess/Plan/Problems-Billing Assessment: This is an 89 yo gentleman with atrial fibrillation chronically anticoagulated with Coumadin who sustained a fall ~ 2 weeks ago who presented after a syncopal episode with a large hematoma that has developed over his right leg/hip. - Patient Problems (1) Syncope Comment: Secondary to hypovolemia/orthostasis due to blood loss into R leg hematoma (2) Blood loss anemia Comment: Hgb has fallen to 7.8 g/dl from 9.4 g/dl at admission, this was anticipated as he appeared dry on initial evaluation Patient reports improvement in dizziness but is still feeling quite weak Will assess orthostatic vitals and repeat H&H in pm to decide whether transfusion is indicated Coumadin has been stopped and 2.5 mg oral vit K given, INR lorenzo slightly this am to 1.89 (3) Hematoma Comment: R leg/hip No associated fracture It is causing significant pain and reduced mobility Requested PT/OT to eval (4) Hyponatremia Comment: Secondary to hypovolemia Improving with normal saline volume expansion (5) Atrial fibrillation Comment: Cont atenolol, appears rate controlled ~90 bpm on average upon review of telemetry trends Coumadin stopped (6) BPH (benign prostatic hyperplasia) Comment: Flomax held after syncope No retention symptoms at this time (7) DVT prophylaxis Comment: SCDs Chemical prophylaxis contraindicated (8) Full code status Status and Disposition: Inpatient. Assess need for transfusion again later today. PT/OT pending. Anticipate additional LOS of ~2d.
[2016-06-23] MEDS: Atenolol TAB* 25 MG PO SCH (08:17)
[2016-06-23 15:43] LABS: Hematocrit 23 % (42-52); Hemoglobin 7.5 g/dl (14.0-18.0)
[2016-06-23 15:47] LABS: Comments Flag Yes
[2016-06-24] MEDS: HYDROcodone/ACETAMIN 5-325 MG* 1 TAB PO PRN ×2 (02:03→08:39)
[2016-06-24 02:21] LABS: Urine Bilirubin Negative (Negative); Urine Glucose Negative (Negative); Urine Nitrite Negative (Negative)
[2016-06-24] MEDS ORDERED: traMADol TAB* 50 MG PO PRN (03:30)
[2016-06-24 05:42] LABS: Hematocrit 23 % (42-52); Mean Corpuscular HGB Conc 34 g/dl (31-36); Mean Corpuscular Hemoglobin 33 pg (27-31); Mean Corpuscular Volume 97 fL (80-94); Mean Platelet Volume 9 um3 (7.4-10.4)
[2016-06-24 05:44] LABS: Comments Flag Yes; Red Cell Distribution Width 25 % (10.5-15)
[2016-06-24 05:52] LABS: BUN/Creatinine Ratio 22.1 (8-20); Calcium 7.8 mg/dL (8.6-10.3); EGFR African American 122.6 (>60); EGFR Non-African American 95.3 (>60)
[2016-06-24] MEDS: Atenolol TAB* 25 MG PO SCH (08:39)
[2016-06-24] MEDS: NS 0.9% 1000 ML* 1,000 ML IV SCH ×2 (08:40→19:48)
--- NOTE | 2016-06-24 10:09 | PN ---
Subjective Date of Service: 06/24/16 Interval History: Mr. Hanley states that he is feeling much better this morning. He has had significant pain to his right hip that is better with pain medication and now with repositioning. He denies other complaint including chest pain, SOB, nausea , or abdominal pain and is tolerating oral intake well. Objective Active Medications: Acetaminophen (Tylenol Tab*) 650 mg PO Q4H PRN Hydrocodone Bitart/Acetaminophen ([place] 5-325 Tab*) 1 tab PO Q4H PRN Atenolol (Tenormin Tab*) 25 mg PO DAILY AWA Sodium Chloride (Ns 0.9% 1000 Ml*) 1,000 mls @ 125 mls/hr IV PER RATE AWA Ondansetron HCl (Zofran Inj*) 4 mg IV Q4H PRN Tramadol HCl (Ultram*) 50 mg PO Q6H PRN Vital Signs 06/23/16 06/23/16 06/23/16 11:37 15:56 20:00 Temperature 98.0 F 97.7 F Pulse Rate 74 40 Respiratory 16 18 20 Rate Blood Pressure 107/61 113/50 (mmHg) O2 Sat by Pulse 98 100 Oximetry 06/23/16 06/23/16 06/24/16 20:13 23:31 02:03 Temperature 98.2 F 97.7 F Pulse Rate 90 109 Respiratory 16 16 Rate Blood Pressure 103/58 106/63 (mmHg) O2 Sat by Pulse 99 94 Oximetry 06/24/16 06/24/16 06/24/16 03:38 03:42 03:46 Temperature 98.9 F Pulse Rate 110 Respiratory 16 16 20 Rate Blood Pressure 120/69 (mmHg) O2 Sat by Pulse 97 Oximetry 06/24/16 06/24/16 06/24/16 04:38 05:21 07:23 Temperature 97.8 F Pulse Rate 111 Respiratory 16 16 22 Rate Blood Pressure 116/67 (mmHg) O2 Sat by Pulse 96 Oximetry 06/24/16 06/24/16 08:00 08:39 Temperature Pulse Rate Respiratory 16 18 Rate Blood Pressure (mmHg) O2 Sat by Pulse Oximetry Oxygen Devices in Use Now: None Appearance: Elderly male sitting up in bed in NAD Respiratory: Symmetrical Chest Expansion and Respiratory Effort, Clear to Auscultation Cardiovascular: NL Sounds; No Murmurs; No JVD, No Edema Abdominal: NL Sounds; No Tenderness; No Distention Extremities: No Edema Skin: - - Large ecchymoses to right shoulder and right hip Neurological: Alert and Oriented x 3, NL Muscle Strength and Tone Nutrition: Taking PO's Result Diagrams: 06/24/16 05:03 06/24/16 05:03 Additional Lab and Data: Vital Signs: Temp Pulse Resp BP Pulse Ox 97.9 F 127 16 99/58 100 06/23/16 07:25 06/23/16 07:25 06/23/16 07:25 06/23/16 07:25 06/23/16 07:25 Diagnostic Imaging: CT pelvis - no fracture, large hematoma along gluteal musculature and posterior thigh Assess/Plan/Problems-Billing Assessment: This is an 89 yo gentleman with atrial fibrillation chronically anticoagulated with Coumadin who sustained a fall ~ 2 weeks ago who presented after a syncopal episode with a large hematoma that has developed over his right leg/hip. - Patient Problems (1) Syncope Comment: Secondary to hypovolemia/orthostasis due to blood loss into R leg hematoma (2) Hematoma Comment: R leg/hip. No associated fracture. It is causing significant pain and reduced mobility. PT/OT recommend subacute rehab for therapy. Continue pain meds prn. (3) Blood loss anemia Comment: Secondary to fall with hematoma on coumadin. Hgb stable at 8 after 1 unit PRBC. (4) Atrial fibrillation Comment: Cont atenolol, appears rate controlled ~90 bpm on average upon review of telemetry trends. Coumadin stopped. (5) BPH (benign prostatic hyperplasia) Comment: Flomax held after syncope. No retention symptoms at this time. (6) Hyponatremia Comment: Secondary to hypovolemia Improving with normal saline volume expansion (7) DVT prophylaxis Comment: SCDs. Chemical prophylaxis contraindicated (8) Full code status Status and Disposition: Inpatient. Will need NABILA based on need for continued PT/OT services.
[2016-06-24] MEDS ORDERED: Polyethylene Glycol 3350* 17 GM PACKET PO PRN (10:26)
[2016-06-24] MEDS ORDERED: Senna TAB PO PRN (21:00)
[2016-06-25] MEDS: NS 0.9% 1000 ML* 1,000 ML IV SCH (05:33)
[2016-06-25] MEDS: Docusate CAP* 100 MG PO SCH (08:47)
[2016-06-25] MEDS: Atenolol TAB* 25 MG PO SCH (08:47)
[2016-06-25] MEDS: HYDROcodone/ACETAMIN 5-325 MG* 1 TAB PO PRN (08:47)
--- NOTE | 2016-06-25 17:28 | PN ---
Subjective Date of Service: 06/25/16 Interval History: Mr. Thomason states that he is feeling well today. He is some minimal pain to his right hip but feels well otherwise. He denies chest pain, SOB, nausea, or abdominal pain. Objective Active Medications: Acetaminophen (Tylenol Tab*) 650 mg PO Q4H PRN PRN Reason: FEVER/PAIN Hydrocodone Bitart/Acetaminophen ([place] 5-325 Tab*) 1 tab PO Q4H PRN PRN Reason: PAIN Last Admin: 06/25/16 08:47 Dose: 1 tab Atenolol (Tenormin Tab*) 25 mg PO DAILY [facility] Last Admin: 06/25/16 08:47 Dose: 25 mg Docusate Sodium (Colace Cap*) 100 mg PO DAILY [facility] Last Admin: 06/25/16 08:47 Dose: 100 mg Sodium Chloride (Ns 0.9% 1000 Ml*) 1,000 mls @ 125 mls/hr IV PER RATE [facility] Last Admin: 06/25/16 05:33 Dose: 125 mls/hr Ondansetron HCl (Zofran Inj*) 4 mg IV Q4H PRN PRN Reason: NAUSEA/VOMITING Polyethylene Glycol/Electrolytes (Miralax*) 17 gm PO DAILY PRN PRN Reason: CONSTIPATION Last Admin: 06/25/16 08:47 Dose: 17 gm Senna (Senokot Tab*) 1 tab PO BEDTIME PRN PRN Reason: CONSTIPATION Tramadol HCl (Ultram*) 50 mg PO Q6H PRN PRN Reason: PAIN Last Admin: 06/24/16 03:42 Dose: 50 mg Vital Signs 06/24/16 06/24/16 06/24/16 19:15 19:31 20:00 Temperature 98.0 F Pulse Rate 92 88 Respiratory 16 16 Rate Blood Pressure 88/59 100/57 (mmHg) O2 Sat by Pulse 100 Oximetry 06/24/16 06/25/16 06/25/16 23:56 07:53 08:00 Temperature 99.7 F 97.3 F Pulse Rate 116 105 Respiratory 16 16 18 Rate Blood Pressure 122/69 127/75 (mmHg) O2 Sat by Pulse 97 92 Oximetry 06/25/16 06/25/16 06/25/16 08:47 10:47 11:30 Temperature 98.1 F Pulse Rate 87 Respiratory 19 16 16 Rate Blood Pressure 94/56 (mmHg) O2 Sat by Pulse 96 Oximetry Oxygen Devices in Use Now: None Appearance: elderly male sitting up in chair in NAD Eyes: No Scleral Icterus Ears/Nose/Mouth/Throat: Mucous Membranes Moist Neck: Trachea Midline Respiratory: Symmetrical Chest Expansion and Respiratory Effort, Clear to Auscultation Cardiovascular: NL Sounds; No Murmurs; No JVD, No Edema Extremities: No Edema Skin: - - large ecchymosis along right shoulder, hip and leg Neurological: Alert and Oriented x 3, NL Muscle Strength and Tone Result Diagrams: 06/24/16 05:03 06/24/16 05:03 Additional Lab and Data: Vital Signs: Temp Pulse Resp BP Pulse Ox 97.9 F 127 16 99/58 100 06/23/16 07:25 06/23/16 07:25 06/23/16 07:25 06/23/16 07:25 06/23/16 07:25 Diagnostic Imaging: CT pelvis - no fracture, large hematoma along gluteal musculature and posterior thigh Assess/Plan/Problems-Billing Assessment: This is an 89 yo gentleman with atrial fibrillation chronically anticoagulated with Coumadin who sustained a fall ~ 2 weeks ago who presented after a syncopal episode with a large hematoma that has developed over his right leg/hip. - Patient Problems (1) Syncope Comment: No further episode. Secondary to hypovolemia/orthostasis due to blood loss into R leg hematoma (2) Hematoma Comment: R leg/hip. No associated fracture. Patient is improving with mobility though. Plan for OT to re-eval tomorrow in hopes that he could return home. Continue pain meds prn. (3) Blood loss anemia Comment: Secondary to fall with hematoma on coumadin. Hgb stable at 8 after 1 unit PRBC. (4) Atrial fibrillation Comment: Cont atenolol, appears rate controlled ~90 bpm on average upon review of telemetry trends. Coumadin stopped. (5) BPH (benign prostatic hyperplasia) Comment: Flomax held after syncope. No retention symptoms at this time. (6) Hyponatremia Comment: Resolved. Secondary to hypovolemia. (7) DVT prophylaxis Comment: SCDs. Chemical prophylaxis contraindicated (8) Full code status Status and Disposition: Inpatient. May be able to return home based on re-eval by PT today. OT to re- eval tomorrow.
[2016-06-26] MEDS: NS 0.9% 1000 ML* 1,000 ML IV SCH ×2 (01:20→10:15)
[2016-06-26] MEDS: Docusate CAP* 100 MG PO SCH (10:02)
[2016-06-26] MEDS: Atenolol TAB* 25 MG PO SCH (10:02)
--- NOTE | 2016-06-26 10:48 | PN ---
Subjective Date of Service: 06/26/16 Interval History: Mr. Hanley denies complaint today. He states that his hip pain is well controlled. He denies chest pain, SOB, nausea, or abdominal pain. He does have some chronic urinary frequency at night with incontinence. Objective Active Medications: Acetaminophen (Tylenol Tab*) 650 mg PO Q4H PRN Hydrocodone Bitart/Acetaminophen ([place] 5-325 Tab*) 1 tab PO Q4H PRN Atenolol (Tenormin Tab*) 25 mg PO DAILY AWA Docusate Sodium (Colace Cap*) 100 mg PO DAILY AWA Sodium Chloride (Ns 0.9% 1000 Ml*) 1,000 mls @ 125 mls/hr IV PER RATE AWA Ondansetron HCl (Zofran Inj*) 4 mg IV Q4H PRN Polyethylene Glycol/Electrolytes (Miralax*) 17 gm PO DAILY PRN Senna (Senokot Tab*) 1 tab PO BEDTIME PRN Tramadol HCl (Ultram*) 50 mg PO Q6H PRN Vital Signs 06/25/16 06/25/16 06/25/16 10:47 11:30 15:24 Temperature 98.1 F 97.3 F Pulse Rate 87 86 Respiratory 16 16 17 Rate Blood Pressure 94/56 102/58 (mmHg) O2 Sat by Pulse 96 100 Oximetry 06/25/16 06/25/16 06/25/16 19:40 20:00 23:58 Temperature 97.3 F 98.2 F Pulse Rate 86 69 Respiratory 17 17 16 Rate Blood Pressure 117/69 112/71 (mmHg) O2 Sat by Pulse 99 98 Oximetry 06/26/16 06/26/16 06/26/16 00:13 03:24 07:32 Temperature 98.1 F 98.1 F 97.9 F Pulse Rate 108 82 91 Respiratory 16 16 Rate Blood Pressure 109/69 120/69 128/72 (mmHg) O2 Sat by Pulse 98 98 96 Oximetry Oxygen Devices in Use Now: None Appearance: Elderly male sitting up in chair in NAD Eyes: No Scleral Icterus Ears/Nose/Mouth/Throat: Mucous Membranes Moist Neck: Trachea Midline Respiratory: Symmetrical Chest Expansion and Respiratory Effort, Clear to Auscultation Cardiovascular: NL Sounds; No Murmurs; No JVD, No Edema Abdominal: NL Sounds; No Tenderness; No Distention Extremities: No Edema Skin: - - Large ecchymosis to right hip Neurological: Alert and Oriented x 3, NL Muscle Strength and Tone Nutrition: Taking PO's Result Diagrams: 06/24/16 05:03 06/24/16 05:03 Additional Lab and Data: Vital Signs: Temp Pulse Resp BP Pulse Ox 97.9 F 127 16 99/58 100 06/23/16 07:25 06/23/16 07:25 06/23/16 07:25 06/23/16 07:25 06/23/16 07:25 Diagnostic Imaging: CT pelvis - no fracture, large hematoma along gluteal musculature and posterior thigh Assess/Plan/Problems-Billing Assessment: This is an 89 yo gentleman with atrial fibrillation chronically anticoagulated with Coumadin who sustained a fall ~ 2 weeks ago who presented after a syncopal episode with a large hematoma that has developed over his right leg/hip. - Patient Problems (1) Syncope Comment: No further episode. Secondary to hypovolemia/orthostasis due to blood loss into R leg hematoma (2) Hematoma Comment: R leg/hip. No associated fracture. Patient is improving with mobility. OT re-eval . Continue pain meds prn. (3) Blood loss anemia Comment: ACUTE BLOOD LOSS ANEMIA, Secondary to fall with hematoma on coumadin. Hgb stable at 8 after 1 unit PRBC. (4) Atrial fibrillation Comment: Cont atenolol, rate controlled. Coumadin stopped. (5) BPH (benign prostatic hyperplasia) Comment: Resume flomax. Recommend that patient follow up outpatient with urology. No evidence of UTI. (6) Hyponatremia Comment: Resolved. Secondary to hypovolemia. (7) DVT prophylaxis Comment: SCDs. Chemical prophylaxis contraindicated (8) Full code status Status and Disposition: Inpatient. May be able to return home based on re-eval by PT today.
[2016-06-26] MEDS ORDERED: Atenolol TAB* 25 MG PO SCH (13:23)
--- NOTE | 2016-06-27 07:46 | PN ---
Subjective Date of Service: 06/27/16 Interval History: Mr. Hanley denies complaint today. He sat up for a few hours after breakfast and feels well. He denies chest pain, SOB, nausea, or abdominal pain. Objective Active Medications: Acetaminophen (Tylenol Tab*) 650 mg PO Q4H PRN Hydrocodone Bitart/Acetaminophen ([place] 5-325 Tab*) 1 tab PO Q4H PRN Atenolol (Tenormin Tab*) 12.5 mg PO DAILY AWA Docusate Sodium (Colace Cap*) 100 mg PO DAILY AWA Ondansetron HCl (Zofran Inj*) 4 mg IV Q4H PRN Polyethylene Glycol/Electrolytes (Miralax*) 17 gm PO DAILY PRN Senna (Senokot Tab*) 1 tab PO BEDTIME PRN Tramadol HCl (Ultram*) 50 mg PO Q6H PRN Vital Signs 06/26/16 06/26/16 06/26/16 08:00 11:22 16:22 Temperature 97.4 F 97.4 F Pulse Rate 93 97 Respiratory 16 16 16 Rate Blood Pressure 103/60 112/57 (mmHg) O2 Sat by Pulse 99 95 Oximetry 06/26/16 06/26/16 06/27/16 22:34 23:29 04:17 Temperature 97.7 F 98.4 F Pulse Rate 94 97 Respiratory 16 17 16 Rate Blood Pressure 113/62 117/68 (mmHg) O2 Sat by Pulse 96 95 Oximetry Oxygen Devices in Use Now: None Appearance: Elderly male lying in bed in NAD Eyes: No Scleral Icterus Ears/Nose/Mouth/Throat: Mucous Membranes Moist Neck: Trachea Midline Respiratory: Symmetrical Chest Expansion and Respiratory Effort, Clear to Auscultation Cardiovascular: NL Sounds; No Murmurs; No JVD, No Edema Abdominal: NL Sounds; No Tenderness; No Distention Lymphatic: No Cervical Adenopathy Extremities: No Edema Skin: - - Ecchymoses to right leg Neurological: Alert and Oriented x 3, NL Muscle Strength and Tone Result Diagrams: 06/24/16 05:03 06/24/16 05:03 Additional Lab and Data: Vital Signs: Temp Pulse Resp BP Pulse Ox 97.9 F 127 16 99/58 100 06/23/16 07:25 06/23/16 07:25 06/23/16 07:25 06/23/16 07:25 06/23/16 07:25 Diagnostic Imaging: CT pelvis - no fracture, large hematoma along gluteal musculature and posterior thigh Assess/Plan/Problems-Billing Assessment: This is an 89 yo gentleman with atrial fibrillation chronically anticoagulated with Coumadin who sustained a fall ~ 2 weeks ago who presented after a syncopal episode with a large hematoma that has developed over his right leg/hip. - Patient Problems (1) Syncope Comment: No further episode. Secondary to hypovolemia/orthostasis due to blood loss into R leg hematoma (2) Hematoma Comment: R leg/hip. No associated fracture. Patient is improving with mobility but is not independent and will need NABILA. Continue pain meds prn. (3) Blood loss anemia Comment: ACUTE BLOOD LOSS ANEMIA, Secondary to fall with hematoma on coumadin. Hgb stable at 8 after 1 unit PRBC. (4) Atrial fibrillation Comment: Cont atenolol, rate controlled. Coumadin stopped. (5) BPH (benign prostatic hyperplasia) Comment: Resume flomax. Recommend that patient follow up outpatient with urology. No evidence of UTI. (6) Hyponatremia Comment: Resolved. Secondary to hypovolemia. (7) DVT prophylaxis Comment: SCDs. Chemical prophylaxis contraindicated (8) DNR (do not resuscitate) Comment: Pt noted to be DNR on arrival, will review with patient and daughter and complete MOLST form. Status and Disposition: Inpatient. May be able to return home based on re-eval by PT today.
[2016-06-27] MEDS: Docusate CAP* 100 MG PO SCH (07:59)
--- NOTE | 2016-06-27 21:20 | PN ---
Hospitalist Progress Note Nursing staff called to report a HR of 130. EKG obtained and shows afib with rate of 94. This EKG is similar to previous EKG from 06/22/13. No changes in medication at this time.
--- NOTE | 2016-06-28 07:53 | PN ---
Subjective Date of Service: 06/28/16 Interval History: Mr. Hanley denies complaint today. He specifically denies chest pain, SOB, nausea, or abdominal pain and is tolerating oral intake well. Social History: Unchanged from Admission Past Medical History: Unchanged from Admission Objective Active Medications: Acetaminophen (Tylenol Tab*) 650 mg PO Q4H PRN Hydrocodone Bitart/Acetaminophen ([place] 5-325 Tab*) 1 tab PO Q4H PRN Atenolol (Tenormin Tab*) 12.5 mg PO DAILY AWA Docusate Sodium (Colace Cap*) 100 mg PO DAILY AWA Ondansetron HCl (Zofran Inj*) 4 mg IV Q4H PRN Polyethylene Glycol/Electrolytes (Miralax*) 17 gm PO DAILY PRN Senna (Senokot Tab*) 1 tab PO BEDTIME PRN Tramadol HCl (Ultram*) 50 mg PO Q6H PRN Vital Signs 06/27/16 06/27/16 06/27/16 08:00 12:20 17:02 Temperature 97.8 F 97.5 F 97.6 F Pulse Rate 78 85 100 Respiratory 16 17 16 Rate Blood Pressure 130/60 117/67 120/78 (mmHg) O2 Sat by Pulse 98 98 100 Oximetry 06/27/16 06/27/16 06/27/16 19:18 19:30 23:44 Temperature 97.6 F 97.7 F Pulse Rate 164 130 105 Respiratory 17 16 19 Rate Blood Pressure 110/49 117/67 (mmHg) O2 Sat by Pulse 97 98 Oximetry 06/28/16 06/28/16 03:16 07:30 Temperature 97.5 F 98.0 F Pulse Rate 94 88 Respiratory 17 16 Rate Blood Pressure 124/63 125/71 (mmHg) O2 Sat by Pulse 97 98 Oximetry Oxygen Devices in Use Now: None Appearance: Elderly male lying in bed in NAD Eyes: No Scleral Icterus Ears/Nose/Mouth/Throat: Mucous Membranes Moist Neck: Trachea Midline Respiratory: Symmetrical Chest Expansion and Respiratory Effort, Clear to Auscultation Cardiovascular: NL Sounds; No Murmurs; No JVD, No Edema Abdominal: NL Sounds; No Tenderness; No Distention Lymphatic: No Cervical Adenopathy, No Axillary Adenopathy Skin: No Rash or Ulcers, - - right wrist in cast Neurological: Alert and Oriented x 3, NL Muscle Strength and Tone Nutrition: Taking PO's Result Diagrams: 06/24/16 05:03 06/24/16 05:03 Additional Lab and Data: Vital Signs: Temp Pulse Resp BP Pulse Ox 97.9 F 127 16 99/58 100 06/23/16 07:25 06/23/16 07:25 06/23/16 07:25 06/23/16 07:25 06/23/16 07:25 Diagnostic Imaging: CT pelvis - no fracture, large hematoma along gluteal musculature and posterior thigh Assess/Plan/Problems-Billing Assessment: This is an 89 yo gentleman with atrial fibrillation chronically anticoagulated with Coumadin who sustained a fall ~ 2 weeks ago who presented after a syncopal episode with a large hematoma that has developed over his right leg/hip. - Patient Problems (1) Syncope Comment: No further episode. Secondary to hypovolemia/orthostasis due to blood loss into R leg hematoma (2) Hematoma Comment: R leg/hip. No associated fracture. Patient is improving with mobility but is not independent and will need NABILA. Continue pain meds prn. (3) Blood loss anemia Comment: ACUTE BLOOD LOSS ANEMIA, Secondary to fall with hematoma on coumadin. Hgb stable at 8 after 1 unit PRBC. (4) Atrial fibrillation Comment: Increased atenolol back to home dose due to sporadic elevations in HR. Coumadin stopped. Will need to review risks/benefits of resuming coumadin with PCP at follow up. (5) BPH (benign prostatic hyperplasia) Comment: Resume flomax. Recommend that patient follow up outpatient with urology. No evidence of UTI. (6) Hyponatremia Comment: Resolved. Secondary to hypovolemia. (7) DVT prophylaxis Comment: SCDs. Chemical prophylaxis contraindicated (8) DNR (do not resuscitate) Comment: DNR Status and Disposition: Inpatient. Will need NABILA.
[2016-06-28] MEDS: Docusate CAP* 100 MG PO SCH (08:11)
[2016-06-28] MEDS: Atenolol TAB* 25 MG PO SCH (08:11)
[2016-06-29] MEDS: Docusate CAP* 100 MG PO SCH (08:47)
[2016-06-29] MEDS: Atenolol TAB* 25 MG PO SCH (08:47)
[2016-06-29] MEDS: HYDROcodone/ACETAMIN 5-325 MG* 1 TAB PO PRN (10:21)
[2016-06-29 10:49] LABS: Hematocrit 31 % (42-52); Hemoglobin 10.2 g/dl (14.0-18.0); Mean Corpuscular HGB Conc 33 g/dl (31-36); Mean Corpuscular Hemoglobin 34 pg (27-31); Mean Corpuscular Volume 101 fL (80-94); Mean Platelet Volume 8 um3 (7.4-10.4); Red Blood Count 3.02 10^6/ul (4.0-5.4); Red Cell Distribution Width 25 % (10.5-15); White Blood Count 6.6 10^3/ul (3.5-10.8)
[2016-06-29 10:52] LABS: Add Diff/Slide Review? Slide Review Added; Comments Flag Yes
[2016-06-29 11:05] LABS: BUN/Creatinine Ratio 21.3 (8-20); Calcium 9.3 mg/dL (8.6-10.3); EGFR Non-African American 64.5 (>60); Potassium 3.8 mmol/L (3.5-5.0)
--- NOTE | 2016-06-29 15:34 | PN ---
Subjective Date of Service: 06/29/16 Interval History: This is an 89 yo gentleman admitted with a large hematoma resulting in acute blood loss anemia and subsequent orthostasis. He has been working with PT. Pain is tolerable. He offers no additional concerns. Objective Active Medications: Acetaminophen (Tylenol Tab*) 650 mg PO Q4H PRN PRN Reason: FEVER/PAIN Last Admin: 06/28/16 19:44 Dose: 650 mg Hydrocodone Bitart/Acetaminophen ([place] 5-325 Tab*) 1 tab PO Q4H PRN PRN Reason: PAIN Last Admin: 06/29/16 10:21 Dose: 1 tab Atenolol (Tenormin Tab*) 25 mg PO DAILY [facility] Last Admin: 06/29/16 08:47 Dose: 25 mg Docusate Sodium (Colace Cap*) 100 mg PO DAILY [facility] Last Admin: 06/29/16 08:47 Dose: 100 mg Ondansetron HCl (Zofran Inj*) 4 mg IV Q4H PRN PRN Reason: NAUSEA/VOMITING Polyethylene Glycol/Electrolytes (Miralax*) 17 gm PO DAILY PRN PRN Reason: CONSTIPATION Last Admin: 06/25/16 08:47 Dose: 17 gm Senna (Senokot Tab*) 1 tab PO BEDTIME PRN PRN Reason: CONSTIPATION Tramadol HCl (Ultram*) 50 mg PO Q6H PRN PRN Reason: PAIN Last Admin: 06/24/16 03:42 Dose: 50 mg Vital Signs: Temp Pulse Resp BP Pulse Ox 97.5 F 86 18 105/57 97 06/29/16 07:21 06/29/16 11:11 06/29/16 12:21 06/29/16 11:11 06/29/16 11:11 Oxygen Devices in Use Now: None Appearance: well appearing elderly gentleman in NAD Respiratory: Symmetrical Chest Expansion and Respiratory Effort, Clear to Auscultation Cardiovascular: NL Sounds; No Murmurs; No JVD, RRR Abdominal: NL Sounds; No Tenderness; No Distention Extremities: No Edema Skin: - - resolving ecchymosis over R leg Neurological: Alert and Oriented x 3 Result Diagrams: 06/29/16 10:30 06/29/16 10:33 Additional Lab and Data: Vital Signs: Temp Pulse Resp BP Pulse Ox 97.9 F 127 16 99/58 100 06/23/16 07:25 06/23/16 07:25 06/23/16 07:25 06/23/16 07:25 06/23/16 07:25 Diagnostic Imaging: CT pelvis - no fracture, large hematoma along gluteal musculature and posterior thigh Assess/Plan/Problems-Billing Assessment: This is an 89 yo gentleman with atrial fibrillation chronically anticoagulated with Coumadin who sustained a fall ~ 2 weeks ago who presented after a syncopal episode with a large hematoma that has developed over his right leg/hip. - Patient Problems (1) Syncope Comment: No further episodes. Secondary to hypovolemia/orthostasis due to blood loss into R leg hematoma (2) Blood loss anemia Comment: ACUTE BLOOD LOSS ANEMIA Secondary to fall with hematoma on coumadin. Hgb stable after 1 unit PRBC. (3) Hematoma Comment: R leg/hip. No associated fracture Patient is improving with mobility but is not independent and will need NABILA. Continue pain meds prn. (4) Hyponatremia Comment: Resolved. Secondary to hypovolemia. (5) Atrial fibrillation Comment: Increased atenolol back to home dose due to sporadic elevations in HR. Coumadin stopped. Will need to review risks/benefits of resuming coumadin with PCP at follow up. (6) BPH (benign prostatic hyperplasia) Comment: Resume flomax. Recommend that patient follow up outpatient with urology. No evidence of UTI. (7) DVT prophylaxis Comment: SCDs. Chemical prophylaxis contraindicated (8) Full code status Status and Disposition: Inpatient. Plan for dc to rehab at [facility] tomorrow
[2016-06-30 08:15] VITALS: BP 106/61
[2016-06-30] MEDS: Atenolol TAB* 25 MG PO SCH (08:29)
[2016-06-30] MEDS: Docusate CAP* 100 MG PO SCH (08:29)
--- NOTE | 2016-06-30 09:10 | DS ---
DATE OF ADMISSION: 06/22/16 DATE OF DISCHARGE: 06/30/16 PRIMARY CARE PROVIDER: Dr. Sheikh DISCHARGING PROVIDER: DENISE Chahal SUPERVISING PHYSICIAN: Dr. Niecy Mcghee * (DICTATED BY DENISE CHAHAL) PRIMARY DISCHARGE DIAGNOSES: 1. Acute blood loss anemia secondary to a large right leg hematoma secondary to contusion without fracture. 2. Syncope secondary to orthostasis related to hypovolemia secondary to acute blood loss anemia. 3. Hyponatremia - resolved, secondary to hypovolemia. SECONDARY DISCHARGE DIAGNOSES: 1. Right hand fracture - followed by Orthopedics, currently casted. 2. Atrial fibrillation - Coumadin has been discontinued. 3. Benign prostatic hypertrophy - consider outpatient urology consultation. DISCHARGE MEDICATIONS: 1. Atenolol 25 mg po daily. 2. Docusate 100 mg po daily. 3. Multivitamin one tablet po daily. 4. MiraLax 17 grams daily as needed for constipation. 5. Senna one tablet po at bedtime as needed for constipation. 6. Flomax 0.4 mg po at bedtime. 7. Tramadol 50 mg po q 6 hours as needed for pain. MEDICATION CHANGES: 1. Discontinue Coumadin. 2. PRN Tramadol. HOSPITAL IMAGIN. CT of the pelvis shows no fracture. There is a large-volume infiltrative hematoma of the right gluteal musculature and extension into the right posterior thigh along the course of the hamstring muscle group measuring up to 6.5 x 4.5 cm. 2. Chest x-ray shows no acute process. 3. EKG shows atrial fibrillation with a rate of approximately 80 beats per minute. HOSPITAL COURSE: This is an 89-year-old gentleman with a history of atrial fibrillation and BPH who presented to the ER after sustaining a syncopal episode at his primary care provider's office. Patient had tripped over a curb on the sidewalk approximately two weeks prior and sustained a fracture to his right hand and a contusion to his right hip. He was evaluated in the ER at that time, and discharged to home. According to the patient and his daughters, he had no significant ecchymosis over the right hip at the time of leaving the ER. His ability to ambulate slowly declined over the couple of weeks that he remained at home, and he subsequently developed extensive ecchymosis that eventually encompassed his entire posterior right leg. He felt progressively weak and slightly dizzy with standing. Patient was to be evaluated at his primary care provider's office; and, when he arrived and went to stand for transfer to the exam table, the patient syncopized and immediately vomited at which point he was transferred to the ER for further evaluation. Initial labs demonstrated a hemoglobin of 9.3 gams/dl, but patient appeared dry on exam; and, when rehydrated, hemoglobin dropped to approximately 7.5 grams/ dl. He was also noted to be hyponatremic with a sodium of 123 mm/L. Patient was subsequently admitted for orthostasis and subsequent acute blood loss anemia with a large hematoma noted in his right leg. A CT scan was performed in the ER of his right pelvis which demonstrated no fracture but confirmed presence of the large hematoma. His INR at the time of admission was slightly subtherapeutic at 1.8. Patient was subsequently rehydrated with normal saline and received a transfusion of just one unit of packed red blood cells. His hemoglobin at the time of discharge is 10.2 grams/dl. Due to the size of patient's hematoma, his mobility was significantly compromised and he had a significant amount of pain associated in that right hip and leg. The patient received physical therapy during his hospital stay, but was felt to be stable enough to return to independent living conditions. DISPOSITION AND FOLLOW-UP PLAN: The patient is being discharged to [facility] for subacute rehab. His right hand is still casted which was completed on an outpatient basis by Orthopedics and does require follow up as previously established. At the time of discharge, the patient is able to ambulate with some assistance and the use of a walker, and requires further rehab services that he'll receive at [facility]. His Coumadin has been discontinued since his ecchymosis has improved significantly as has his pain and range of motion. Patient does require further discussion with his primary care provider in regards to appropriate timing of resuming his Coumadin, if that is desired by patient and his family. At baseline, he seems to be quite functional and does seem to be an appropriate candidate for anticoagulation, but will likely require several months for complete resolution of his hematoma. DENISE CHAHAL CC: Dr. Sheikh; Ksenia* [id number] #: [id number] [facility] HOSPITALJonny
== END 2016-06-30 11:10 | DRG 812 ==
LOC: ED 14:33 → MEDTELE 16:00 → OBSVTOIN 17:31 → MEDTELE 06-23 05:46 → MED 06-26 00:02
PROVIDERS: ADMIT Internal Medicine; ATTEND Internal Medicine
PROC: 30233N1 Transfusion of Nonautologous Red Blood Cells into Peripheral Vein, Percutaneous Approach (ICD-10-PCS; principal; 2016-06-23)
DX: D62 Acute posthemorrhagic anemia (principal); E87.1 Hypo-osmolality and hyponatremia; E86.1 Hypovolemia; I48.91 Unspecified atrial fibrillation; I95.1 Orthostatic hypotension; N40.0 Benign prostatic hyperplasia without lower urinary tract symptoms; R33.9 Retention of urine, unspecified; S70.11XA Contusion of right thigh, initial encounter; W01.198A Fall on same level from slipping, tripping and stumbling with subsequent striking against other object, initial encounter; Y92.89 Other specified places as the place of occurrence of the external cause; Z79.01 Long term (current) use of anticoagulants; S62.91XD Unspecified fracture of right hand, subsequent encounter for fracture with routine healing; Z79.899 Other long term (current) drug therapy; Z66 Do not resuscitate; W01.198D Fall on same level from slipping, tripping and stumbling with subsequent striking against other object, subsequent encounter
CPT/HCPCS: 36415; 71010; 72192; 80048; 80053; 81003; 82550; 83605; 83735; 83880; 84443; 84484; 85014; 85018; 85025; 85610; 86850; 86900; 86901; 86922; 93005; A9270-GY; P9040